=== PATIENT | female | born 2000 | race Caucasian/White ===

== ENCOUNTER 2024-09-09 11:55 | Emergency (ER) | payer OTHER, MEDICAID | END 2024-09-09 14:09 | disposition home or self-care (01) | LOC: JP.ED 11:55 | DX: O9A.311 Physical abuse complicating pregnancy, first trimester (principal); Z91.048 Other nonmedicinal substance allergy status; Z88.2 Allergy status to sulfonamides; Z88.8 Allergy status to other drugs, medicaments and biological substances; Z3A.13 13 weeks gestation of pregnancy; Y04.8XXA Assault by other bodily force, initial encounter; Y93.89 Activity, other specified | CPT/HCPCS: 99283 ==